=== PATIENT | male | born 1980 | race Caucasian/White ===

== ENCOUNTER 2016-04-01 15:41 | Emergency (ER) | payer SELFPAY ==
[~2016-04-01] VITALS: Ht 170.2 cm; Wt 70.8 kg
[~2016-04-01 15:41] MED LIST: BUTA1TAB46 PO; CLIN-81 PO; CLIN300C3 PO; METH4TAB PO; METO50TA7 PO; NAPR-243 PO; NAPR-689 PO; ONDAN4ODT PO; PENI500T PO; TRAM-21 PO; TRAM50TA2 PO; TRM50T PO
--- OUTSIDE RECORDS SUMMARY | 2016-04-01 15:46 | XMS REPORT | Continuity of Care Document ---
Author Author [facility] Organization [facility] Address Unknown Phone Unavailable Care Team Providers Care Bender Machine Operator Name Role Phone NO, LOCAL PHYSICIAN PCP Unavailable Insurance Providers Payer Name Policy Number Subscriber Name Relationship Self Pay Sy Ramsey 18 Self / Same As Patient Advance Directives Directive Response Recorded Date/Time Advance Directives No 05/08/14 8:01am Health Care Power of Analytics Leader No 05/08/14 8:01am Organ Donor No 05/08/14 8:01am Resuscitation Status Full Code 05/08/14 8:01am Problems No known problems or medical conditions. Medications Medication Dose Route Sig Days/Qty Instructions Order Date Discontinued Date Status Acetaminophen/Butalbital/Caffeine 1 - 2 Each PO Q4HR PRN 10 Qty FOR HEADACHE 04/10/10 06/12/11 Discontinued Metoprolol Succinate 50 Mg PO TWICE A DAY 04/17/10 06/12/11 Discontinued Methylprednisolone 0 PO DIRECTED 1 Qty 06/12/11 09/01/11 Discontinued Penicillin V Potassium 1 Tab PO FOUR TIMES DAILY 40 Qty 06/12/1108/31 Discontinued Tramadol HCl 50 Mg PO Q4-6HOURS PRN 20 Qty FOR PAIN 06/12/11 09/01/11 Discontinued Ondansetron HCl 4 Mg PO EVERY 4HRS 5 Qty 06/12/11 09/01/11 Discontinued Clindamycin HCl 1 Each PO FOUR TIMES DAILY 40 Qty 05/08/14 Active Naproxen 1 Each PO THREE TIMES A DAY PRN PAIN 20 Qty FOR PAIN 05/08/14 Active Tramadol Hcl 50 Mg PO EVERY 4HRS 20 Qty 05/08/14 Active Social History Social History Problem Response Recorded Date/Time Alcohol Use Denies Use 05/08/2014 8:01am Recreational Drug Use No 05/08/2014 8:01am Recent Foreign Travel No 05/08/2014 7:51am Recent Infectious Disease Exposure No 05/08/2014 7:51am Hospitalization with Isolation Denies 05/08/2014 7:51am Smoking Status Current Everyday Smoker 05/08/2014 8:01am Query Response Start Date Stop Date Smoking Status Current Everyday Smoker Hospital Discharge Instructions No hospital discharge instructions. Plan of Care No plan of care. Functional Status No functional status results. Allergies, Adverse Reactions, Alerts Allergen Type Severity Reaction Status Last Updated No Known Drug Allergies Active 04/10/10 Immunizations No immunization records. Vital Signs Acute Vital Signs Vital Response Date/Time Temperature (Fahrenheit) 98.2 degrees F (97.6 - 99.5) Temperature (Calculated Celsius) 36.70984 degrees C (36.4 - 37.5) Temperature Source Tympanic Pulse Rate (adult) 111 bpm (60 - 90) Respiratory Rate 20 bpm (12 - 24) O2 Sat by Pulse Oximetry 99 % (88 - 100) Blood Pressure 165/112 mm Hg Pain Pain Intensity 7 Height (Feet) 5 feet Height (Inches) 6 inches Height (Calculated Centimeters) 167.790019 cm Weight (Pounds) 158 pounds Weight (Calculated Kilograms) 71.872739 kilograms Calculated BMI 25.50 Results No known relevant diagnostic tests, laboratory data and/or discharge summary. Procedures No known history of procedures. Encounters Encounter Location Date/Time Departed Emergency Room [facility] 05/08/14 7:40am Recent Diagnosis
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
--- NOTE | 2016-04-01 18:07 | Diagnostic Imaging Report ---
PROCEDURE: CT head and maxillofacial without contrast. TECHNIQUE: Multiple contiguous axial images were obtained through the head and facial bones without the use of intravenous contrast. INDICATION: Headache, left eye pain. COMPARISON: May 09, 2014 FINDINGS: A 3.8 x 1.1 cm CSF density structure is identified within the anterior aspect of the left middle cerebral fossa. This is unchanged since the prior examination and it is also unchanged since April 10, 2010. No associated significant mass effect. No intracranial hemorrhage. No solid mass, mass effect, midline shift, herniation, hydrocephalus, or hemorrhagic extra-axial fluid collection. No definite CT evidence of an acute ischemic infarction. The calvarium and extracalvarial soft tissues are unremarkable. The frontal sinuses are clear. Ethmoid air cells are clear. Sphenoid sinuses are clear. Mastoid air cells and middle ear cavities are clear. The maxillary sinuses are clear. Lamina papyracea are intact. No temporomandibular joint dislocation. The patient is nearly completely edentulous. Gris bullosa of the bilateral middle turbinates. Bilateral ostiomeatal complexes are patent. No acute facial fracture identified. The visualized salivary glands are unremarkable. No suspicious radiopaque foreign body. The orbits are unremarkable. IMPRESSION: 1. No acute intracranial abnormality. 2. No acute facial fracture. 3. The patient is nearly completely edentulous at this time, which is new from the prior examination. 4. CSF density structure within the left middle cranial fossa. This is unchanged since 2010 likely relates to an arachnoid cyst. Additional findings as above. Dictated by: Dictated on workstation # [id number]
[2016-04-01] MEDS ORDERED: HYDR25TA4 PO (18:39)
[2016-04-01] MEDS ORDERED: HYDR-3812 PO (18:39)
[2016-04-01 18:45] VITALS: BP 154/85
== END 2016-04-01 18:45 | disposition home or self-care (01) ==
LOC: EDUNIT# 15:41 → ER 15:42
DX: R51 Headache (principal); I10 Essential (primary) hypertension
CPT/HCPCS: 70450; 70486; 99282

== ENCOUNTER 2021-03-28 13:45 | Emergency (ER) | payer SELFPAY ==
[~2021-03-28] VITALS: Ht 167 cm; Wt 63.0 kg
[~2021-03-28 13:45] MED LIST changes: +ACHD5005 PO; +HYDR25TA4 PO
--- NOTE | 2021-03-28 14:44 | ED Chest Pain ---
General Chief Complaint: Chest Wall Stated Complaint: CP/L RIB PAIN X 1 MONTH Source: patient Exam Limitations: no limitations History of Present Illness Date Seen by Provider: Mar 28, 2021 Time Seen by Provider: 14:43 Initial Comments ER with left upper lateral chest wall pain for about 1 month. Seems to be there all the time but it is worse whenever he gets worked up or stressed out. He does work out at [employer] and does a lot of physical labor. He states he is an anxious person as well. He took 1 baby aspirin this morning as well as one 200 mg ibuprofen. He initially thought this might just be muscle strain but it has not gotten any better over the course of the past month. Timing/Duration: changing over time Severity/Quality: moderate Location: central Radiation: no radiation Activities at Onset: none ASA po FISHERIES INSPECTOR: No NTG SL FISHERIES INSPECTOR: No Allergies and Home Medications Allergies Coded Allergies: No Known Drug Allergies (Unverified , 04/10/10) Patient Home Medication List Home Medication List Reviewed: Yes Hydrochlorothiazide (Hydrochlorothiazide) 25 Mg Tablet, 25 MG PO DAILY Prescribed by: SARAH LAMBERT on 04/01/161838 Hydrocodone Bit/Acetaminophen (Lortab 5 Mg Tablet) 1 Each Tablet, 1 EACH PO Q4H PRN for PAIN Prescribed by: SARAH LAMBERT on 04/01/161838 Venlafaxine HCl (Venlafaxine HCl ER) 75 Mg Cap.er.24h, 75 MG PO DAILY Prescribed by: BLAIR KENT on 03/28/21 1523 Review of Systems Review of Systems Constitutional: see HPI EENTM: No Symptoms Reported Respiratory: No Symptoms Reported Cardiovascular: No Symptoms Reported Gastrointestinal: No Symptoms Reported Genitourinary: No Symptoms Reported Musculoskeletal: see HPI Psychiatric/Neurological: No Symptoms Reported Endocrine: No Symptoms Reported Hematologic/Lymphatic: No Symptoms Reported Past Tvcssdx-Uwrblz-Nuksbp Hx Immunizations Up To Date Tetanus Booster (TDap): More than 5yrs Seasonal Allergies Seasonal Allergies: No Past Medical History Hypertension Headaches /Migraines Reproductive Disorders: No HIV/AIDS: No Loss of Vision: Denies Hearing Impairment: Denies Adverse Reaction/Blood Tranf: No Family Medical History Alzheimer's disease GRANDMOTHER Cataracts GRANDMOTHER Diabetes mellitus GRANDFATHER Hypertension 19 FATHER Neoplasm GRANDFATHER No Family History of: AIDS Abdominal aortic aneurysm Jace's disease Alcoholism Aphasia Arthritis Asthma Cancer of mouth Cardiovascular disease Colon cancer Completed stroke Congenital disease Congenital heart disease Coronary thrombosis Cystic fibrosis Deafness or hearing loss Dementia Drug abuse Dysphasia Fibrocystic disease of breast Gastroenteritis Glaucoma Headache disorder Hypercholesterolemia Infertility Kidney disease Myocardial infarction Not obtainable due to adoption Osteoporosis Parkinson's disease Prostate cancer Psychosocial problem Respiratory disorder Seizure disorder Severe allergy Thyroid disease Tuberculosis Visual disorder No Pertinent Family Hx Physical Exam Vital Signs Capillary Refill : Height, Weight, BMI Height: 5'7.00" Weight: 156lbs. oz. 70.757791zp; 24.43 BMI Method:Stated General Appearance: No Apparent Distress, WD/WN, Anxious Neck: Full Range of Motion, Normal Inspection Respiratory: No Accessory Muscle Use, No Respiratory Distress Cardiovascular: Regular Rate, Rhythm, Normal Peripheral Pulses Gastrointestinal: Normal Bowel Sounds, Non Tender, Soft Extremity: Normal Capillary Refill, Normal Inspection Neurologic/Psychiatric: Alert, Oriented x3 Skin: Normal Color, Warm/Dry Progress/Results/Core Measures Results/Orders Lab Results Laboratory Tests Test 03/28/21 14:17 Range/Units White Blood Count 9.4 4.3-11.0 10^3/uL Red Blood Count 4.85 4.30-5.52 10^6/uL Hemoglobin 14.4 13.3-17.7 g/dL Hematocrit 42 40-54 % Mean Corpuscular Volume 87 80-99 fL Mean Corpuscular Hemoglobin 30 25-34 pg Mean Corpuscular Hemoglobin Concent 34 32-36 g/dL Red Cell Distribution Width 12.2 10.0-14.5 % Platelet Count 280 130-400 10^3/uL Mean Platelet Volume 9.1 9.0-12.2 fL Immature Granulocyte % (Auto) 0 % Neutrophils (%) (Auto) 75 42-75 % Lymphocytes (%) (Auto) 18 12-44 % Monocytes (%) (Auto) 6 0-12 % Eosinophils (%) (Auto) 1 0-10 % Basophils (%) (Auto) 0 0-10 % Neutrophils # (Auto) 7.0 1.8-7.8 10^3/uL Lymphocytes # (Auto) 1.7 1.0-4.0 10^3/uL Monocytes # (Auto) 0.6 0.0-1.0 10^3/uL Eosinophils # (Auto) 0.1 0.0-0.3 10^3/uL Basophils # (Auto) 0.0 0.0-0.1 10^3/uL Immature Granulocyte # (Auto) 0.0 0.0-0.1 10^3/uL Sodium Level 141 135-145 MMOL/L Potassium Level 3.6 3.6-5.0 MMOL/L Chloride Level 103 98-107 MMOL/L Carbon Dioxide Level 28 21-32 MMOL/L Anion Gap 10 5-14 MMOL/L Blood Urea Nitrogen 8 7-18 MG/DL Creatinine 0.85 0.60-1.30 MG/DL Estimat Glomerular Filtration Rate 114 BUN/Creatinine Ratio 9 Glucose Level 103 70-105 MG/DL Calcium Level 9.5 8.5-10.1 MG/DL Corrected Calcium 8.5-10.1 MG/DL Total Bilirubin 0.4 0.1-1.0 MG/DL Aspartate Amino Transf (AST/SGOT) 20 5-34 U/L Alanine Aminotransferase (ALT/SGPT) 20 0-55 U/L Alkaline Phosphatase 62 40-136 U/L Troponin I < 0.028 <0.028 NG/ML C-Reactive Protein High Sensitivity 0.08 0.00-0.50 MG/DL Total Protein 7.3 6.4-8.2 GM/DL Albumin 4.6 H 3.2-4.5 GM/DL My Orders Orders - BLAIR KENT APRN Cbc With Automated Diff (03/28/21 14:33) Comprehensive Metabolic Panel (03/28/21 14:33) Troponin I Marita (03/28/21 14:33) Ekg Tracing (03/28/21 14:33) Hs C Reactive Protein (03/28/21 14:33) Chest Pa/Lat (2 View) (03/28/21 14:33) Ibuprofen Tablet (Motrin Tablet) (03/28/21 14:45) Lorazepam Tablet (Ativan Tablet) (03/28/21 14:45) Medications Given in ED Current Medications Medications Dose Ordered Sig/Rain Route Start Time Stop Time Status Last Admin Dose Admin Ibuprofen 800 mg ONCE ONCE PO 03/28/21 14:45 03/28/21 14:46 DC 03/28/21 14:44 800 MG Lorazepam 0.5 mg ONCE ONCE PO 03/28/21 14:45 03/28/21 14:46 DC 03/28/21 14:44 0.5 MG Departure Communication (Admissions) 1543 EKG shows sinus rhythm at [address] segment changes no ectopy 1543 his chest is much less tight now and he feels much more relaxed. His blood pressure has fallen from 170s down to 130s with only the administration of lorazepam and ibuprofen. I have given him a prescription for Effexor, sent that to [facility]. Impression Primary Impression: Anxiety Additional Impression: Chest wall pain Disposition: HOME, SELF-CARE Condition: Stable Departure-Patient Inst. Decision time for Depature: 15:22 Referrals: ALFREDO PENA DO NO,LOCAL PHYSICIAN (PCP) Primary Care Physician Patient Instructions: Anxiety, Adult ED, Chest Pain (DC) Add. Discharge Instructions: 1. Use ibuprofen 4 tablets every 8 hours as needed for pain. Follow-up with your doctor next week. Try to give your left arm a break, try not lifting anything with it for a week or 2. Start the medication for anxiety as directed. Return to ER for any concerns. All discharge instructions reviewed with patient and/or family. Voiced understanding. Scripts Venlafaxine HCl (Venlafaxine HCl ER) 75 Mg Cap.er.24h 75 MG PO DAILY, #30 CAP 1 Refill Prov: BLAIR KENT APRN 03/28/21 Work/School Note: Work Release Form Date Seen in the Emergency Department: Mar 28, 2021 Return to Work: Mar 30, 2021 Images Torso/Trunk 1 - Tenderness BLAIR KENT APRN Mar 28, 2021 14:44
[2021-03-28] MEDS ORDERED: LORazepam 0.5 MG (ATIVAN) TABLET PO ONE (14:45)
[2021-03-28] MEDS ORDERED: IBUPROFEN 800 MG (MOTRIN) TAB PO ONE (14:45)
[2021-03-28 14:54] LABS: BASOPHILS % (AUTO) 0 % (0-10); EOSINOPHILS # (AUTO) 0.1 10^3/uL (0.0-0.3); EOSINOPHILS % (AUTO) 1 % (0-10); HEMATOCRIT 42 % (40-54); HEMOGLOBIN 14.4 g/dL (13.3-17.7); LYMPHOCYTES # (AUTO) 1.7 10^3/uL (1.0-4.0); LYMPHOCYTES % (AUTO) 18 % (12-44); MEAN CORPUSCULAR HEMOGLOBIN 30 pg (25-34); MEAN CORPUSCULAR HGB CONC 34 g/dL (32-36); MEAN CORPUSCULAR VOLUME 87 fL (80-99); MEAN PLATELET VOLUME 9.1 fL (9.0-12.2); MONOCYTES # (AUTO) 0.6 10^3/uL (0.0-1.0); MONOCYTES % (AUTO) 6 % (0-12); NEUTROPHILS % (AUTO) 75 % (42-75); PLATELET COUNT 280 10^3/uL (130-400); WHITE BLOOD COUNT 9.4 10^3/uL (4.3-11.0)
[2021-03-28 15:03] LABS: ALBUMIN 4.6 GM/DL (3.2-4.5); CHLORIDE 103 MMOL/L (98-107); POTASSIUM 3.6 MMOL/L (3.6-5.0); SODIUM 141 MMOL/L (135-145)
[2021-03-28 15:04] LABS: CALCIUM 9.5 MG/DL (8.5-10.1)
[2021-03-28 15:05] LABS: GLUCOSE 103 MG/DL (70-105)
[2021-03-28 15:06] LABS: TOTAL PROTEIN 7.3 GM/DL (6.4-8.2)
[2021-03-28 15:07] LABS: BILIRUBIN,TOTAL 0.4 MG/DL (0.1-1.0); CARBON DIOXIDE 28 MMOL/L (21-32)
[2021-03-28 15:09] LABS: ALKALINE PHOSPHATASE 62 U/L (40-136); CREATININE SERUM 0.85 MG/DL (0.60-1.30); GFR ESTIMATED 114
[2021-03-28 15:10] LABS: BUN/CREATININE RATIO 9
[2021-03-28 15:12] LABS: ALANINE AMINOTRANSFERASE 20 U/L (0-55)
--- NOTE | 2021-03-28 15:19 | Diagnostic Imaging Report ---
INDICATION: Left chest pain PA and lateral chest obtained at 3:10 p.m. and compared to 09/01/2011. Heart and mediastinal silhouette are normal in appearance. The lungs are clear. There is no pneumothorax or pleural fluid. IMPRESSION: Negative chest. Dictated by: Dictated on workstation # [id number]
[2021-03-28] MEDS ORDERED: VENL75CA93 PO (15:23)
[2021-03-28 15:42] VITALS: BP 139/89
== END 2021-03-28 15:45 | disposition home or self-care (01) ==
LOC: EDUNIT# 13:45 → ER 13:47
DX: R07.89 Other chest pain (principal); F41.9 Anxiety disorder, unspecified; I10 Essential (primary) hypertension; G43.909 Migraine, unspecified, not intractable, without status migrainosus
CPT/HCPCS: 36415; 71046; 80053; 84484; 85025; 86141; 93005

== ENCOUNTER 2021-03-30 12:02 | Emergency (ER) | payer SELFPAY ==
[~2021-03-30] VITALS: Ht 167 cm; Wt 63.5 kg
[~2021-03-30 12:02] MED LIST changes: +VENL75CA93 PO
[2021-03-30] MEDS ORDERED: ALPRAZolam 0.5 MG (XANAX) TAB PO SCH (12:15)
--- NOTE | 2021-03-30 12:17 | ED Chest Pain ---
General Chief Complaint: Chest Wall Stated Complaint: L SIDE CHEST AND RIB PAIN Source: patient Exam Limitations: no limitations History of Present Illness Date Seen by Provider: Mar 30, 2021 Time Seen by Provider: 12:16 Initial Comments To ER with recurrent left upper chest wall pain. He was seen here a few days ago for the same. This is been present for about a month. He believes this is related to his blood pressure which is currently 174/109. He is very anxious today as he was the other day. I prescribed him Effexor. Timing/Duration: changing over time Severity/Quality: moderate Radiation: no radiation Activities at Onset: none ASA po RESEARCH TEST ENGINE OPERATOR: No NTG SL RESEARCH TEST ENGINE OPERATOR: No Associated Symptoms: No shortness of breath Allergies and Home Medications Allergies Coded Allergies: No Known Drug Allergies (Unverified , 04/10/10) Patient Home Medication List Home Medication List Reviewed: Yes Hydrochlorothiazide (Hydrochlorothiazide) 25 Mg Tablet, 25 MG PO DAILY Prescribed by: SARAH LAMBERT on 04/01/161838 Hydrocodone Bit/Acetaminophen (Lortab 5 Mg Tablet) 1 Each Tablet, 1 EACH PO Q4H PRN for PAIN Prescribed by: SARAH LAMBERT on 04/01/161838 Venlafaxine HCl (Venlafaxine HCl ER) 75 Mg Cap.er.24h, 75 MG PO DAILY Prescribed by: BLAIR KENT on 03/28/21 1523 Review of Systems Review of Systems Constitutional: see HPI EENTM: No Symptoms Reported Respiratory: No Symptoms Reported Cardiovascular: No Symptoms Reported Gastrointestinal: No Symptoms Reported Genitourinary: No Symptoms Reported Musculoskeletal: no symptoms reported Skin: no symptoms reported Psychiatric/Neurological: No Symptoms Reported Endocrine: No Symptoms Reported Hematologic/Lymphatic: No Symptoms Reported Past Znygcsf-Jdhmsi-Uhyrge Hx Patient Social History Tobacco Use?: Yes Tobacco type used: Cigarettes Smoking Status: Current Everyday Smoker Substance use?: No Alcohol Use?: No Pt feels they are or have been: No Immunizations Up To Date Tetanus Booster (TDap): More than 5yrs First/Initial COVID19 Vaccinat: no Second COVID19 Vaccination Montrell: no Third COVID19 Vaccination Date: no Seasonal Allergies Seasonal Allergies: No Past Medical History Surgery/Hospitalization HX: anxiety Hypertension Headaches /Migraines Reproductive Disorders: No HIV/AIDS: No Loss of Vision: Denies Hearing Impairment: Denies Adverse Reaction/Blood Tranf: No Family Medical History Alzheimer's disease GRANDMOTHER Cataracts GRANDMOTHER Diabetes mellitus GRANDFATHER Hypertension 19 FATHER Neoplasm GRANDFATHER No Family History of: AIDS Abdominal aortic aneurysm [facility] disease Alcoholism Aphasia Arthritis Asthma Cancer of mouth Cardiovascular disease Colon cancer Completed stroke Congenital disease Congenital heart disease Coronary thrombosis Cystic fibrosis Deafness or hearing loss Dementia Drug abuse Dysphasia Fibrocystic disease of breast Gastroenteritis Glaucoma Headache disorder Hypercholesterolemia Infertility Kidney disease Myocardial infarction Not obtainable due to adoption Osteoporosis Parkinson's disease Prostate cancer Psychosocial problem Respiratory disorder Seizure disorder Severe allergy Thyroid disease Tuberculosis Visual disorder No Pertinent Family Hx Physical Exam Vital Signs Vital Signs - First Documented 03/30/21 12:14 Temp 36.5 Pulse 92 Resp 14 B/P (MAP) 183/106 (131) Pulse Ox 98 Capillary Refill : Height, Weight, BMI Height: 5'7.00" Weight: 156lbs. oz. 70.250554vd; 22.00 BMI Method:Stated General Appearance: No Apparent Distress, WD/WN, Anxious HEENT: PERRL/EOMI, TMs Normal Respiratory: No Accessory Muscle Use, No Respiratory Distress Cardiovascular: Regular Rate, Rhythm, Normal Peripheral Pulses Gastrointestinal: Non Tender, Soft Extremity: Normal Capillary Refill, Normal Inspection Neurologic/Psychiatric: Alert, Oriented x3 Skin: Normal Color, Warm/Dry Progress/Results/Core Measures Results/Orders My Orders Orders - BLAIR KENT APRN Alprazolam Tablet (Xanax Tablet) (03/30/21 12:15) Vital Signs/I&O 03/30/21 12:14 Temp 36.5 Pulse 92 Resp 14 B/P (MAP) 183/106 (131) Pulse Ox 98 Departure Communication (Admissions) 1320-his blood pressure was 174/101 on arrival. He has fallen to 145/96 after 0.5 mg alprazolam. He feels much better and his pain is gone. I will give him a prescription short-term benzodiazepine and JAVON inhibitor. He will follow up with primary care. Impression Primary Impression: Anxiety Additional Impression: Hypertension Disposition: 01 HOME, SELF-CARE Condition: Stable Departure-Patient Inst. Decision time for Depature: 12:40 Referrals: NO,LOCAL PHYSICIAN (PCP/Family) Primary Care Physician Patient Instructions: Anxiety, Adult (DC) Add. Discharge Instructions: 1. Medication as directed. Continue to take the Effexor, it will take about 2 weeks to notice maximum benefit from the medication and for the side effects to improve. In the meantime you can add the lorazepam twice a day as needed for anxiety. Beware this can be addicting so take it as infrequently as possible. All discharge instructions reviewed with patient and/or family. Voiced understanding. Scripts Lisinopril (Lisinopril) 20 Mg Tablet 20 MG PO DAILY, #30 TAB Prov: BLAIR KENT APRN 03/30/21 Lorazepam (Ativan) 0.5 Mg Tablet 0.5 MG PO BID PRN for ANXIETY for 7 Days, #14 TAB Prov: BLAIR KENT APRN 03/30/21 BLAIR KENT APRN Mar 30, 2021 12:17
[2021-03-30] MEDS ORDERED: LISI20TA26 PO (13:22)
[2021-03-30] MEDS ORDERED: LORA-404 PO (13:22)
[2021-03-30 13:36] VITALS: BP 151/93
== END 2021-03-30 13:36 | disposition home or self-care (01) ==
LOC: EDUNIT# 12:02 → ER 12:04
DX: F41.9 Anxiety disorder, unspecified (principal); I10 Essential (primary) hypertension; F17.210 Nicotine dependence, cigarettes, uncomplicated
CPT/HCPCS: 99283

== ENCOUNTER → 2021-05-06 | Outpatient (CLI) | payer OTHER ==
[~2021-05-06] VITALS: Ht 167 cm; Wt 67.0 kg
[~2021-05-06] MED LIST changes: +CATHETER FLUSH 10 ML SYR IVP PRN; +LISI20TA26 PO; +LORA-404 PO; +REGADENOSON 0.4 MG/5 ML SYR (LEXISCAN) IV ONE
[2021-05-06 11:15] LABS: ALBUMIN 4.3 GM/DL (3.2-4.5); BILIRUBIN,TOTAL 0.6 MG/DL (0.1-1.0); CALCIUM 9.4 MG/DL (8.5-10.1); CREATININE SERUM 0.83 MG/DL (0.60-1.30); POTASSIUM 4.5 MMOL/L (3.6-5.0); TOTAL PROTEIN 6.7 GM/DL (6.4-8.2)
[2021-05-06 12:42] VITALS: BP 147/95
--- NOTE | 2021-05-06 19:40 | STRESS TEST ---
DATE OF SERVICE: 05/06/2021 RESTING AND POST REGADENOSON TECHNETIUM-99M TETROFOSMIN SPECT CT IMAGING ORDERING PHYSICIAN: Dr. Coombs. CLINICAL DIAGNOSIS: Chest discomfort. Baseline images were carried out after injection of 10.72 mCi of technetium-99m Tetrofosmin. This was followed by 0.4 mg regadenoson and 30.2 mCi of technetium-99m Tetrofosmin for stress imaging. The electrocardiogram showed sinus rhythm at baseline. It did not change significantly with the regadenoson infusion. The patient noted some shortness of breath following regadenoson infusion, which resolved in a few minutes. Overall, he tolerated the procedure well. Review of images at rest and following stress does not indicate any distinct perfusion defects consistent with significant myocardial ischemia or infarction. Gated images show normal global left ventricular systolic function with normal regional wall motion. Left ventricular ejection fraction is calculated to be 65%. CONCLUSIONS: 1. No evidence of any significant myocardial ischemia or infarction on this study. 2. Normal regional wall motion. 3. Normal global left ventricular systolic function with a calculated ejection fraction of 65%. Job ID: [id number] DocumentID: [id number] Dictated Date: 05/06/2021 18:10:32 Rubber Stamp Assembler Date: 05/06/2021 19:38:53 Dictated By: CARLOS COOMBS MD, MA, FACP, FACC,
== END ==
LOC: CARD 11:30
PROVIDERS: ATTEND Internal Medicine Cardiovascular Disease
DX: R07.89 Other chest pain (principal); I10 Essential (primary) hypertension
CPT/HCPCS: 78452; 80053; 80061; 93017; 93306; A9502; 36415